=== PATIENT | male | born 1965 | race Caucasian/White ===

== ENCOUNTER 2020-09-23 22:34 | Emergency (ER) | payer BC ==
[2020-09-23] MEDS ORDERED: IBUPROFEN 600 MG TABLET PO STA (23:51)
--- NOTE | 2020-09-23 23:55 | ED Physician Documentation ---
History of Present Illness - Stated complaint Stated Complaint: RT EYE INJ - Chief complaint Chief Complaint: Heent - History obtained from History obtained from: Patient - Additonal information Additional information: 54-year-old man with pmh presbyopia with corrective lenses (did not bring today) , Up-to-date on tdap Presents with right eye injury after being poked directly in the middle of the eye with a tree branch this morning. Initially, the pain was mild, localized to the eye, sudden onset and constant. It has progressively worsened to the point that he is endorsing some blurring of vision and tearing. denies bleeding or other injuries. Review of Systems Eyes: reports: Decreased vision, Photophobia, Irritation PD PAST MEDICAL HISTORY - Past Medical History Past Medical History: Yes Cardiovascular: Hypertension - Past Surgical History Past Surgical History: No - Present Medications Home Medications: Ambulatory Orders Medication Instructions Recorded Confirmed Hydrochlorothiazide 09/23/20 Lisinopril [Zestril] 09/23/20 Mineral Oil/Petrolatum,White 3.5 gm LEFTEYE Q4H 7 Days #1 bottle 09/23/20 [Lubricant Pm Eye Ointment] Ofloxacin 0.3% Ophth Drops 1 drops OPTH Q4H 7 Days #1 bottle 09/23/20 [Ocuflox 0.3% Ophth Drops] - Allergies Allergies/Adverse Reactions: Allergies Allergy/AdvReac Type Severity Reaction Status Date / Time No Known Drug Allergies Allergy Verified 09/23/20 23:13 - Social History Does the pt smoke?: No Smoking Status: Never smoker Does the pt drink ETOH?: Yes ETOH Use: Wine Does the pt have substance abuse?: No - Immunizations Immunizations are current?: Yes PD ED PE NORMAL - Vitals Vital signs reviewed: Yes - General General: Alert and oriented X 3, No acute distress - HEENT HEENT: Atraumatic, PERRL, EOMI, Other (R eye with some mild tearing. visual acuity 20/50 L, 20/200 R eye. see procedure note for fluorescein stain) Results - Vitals Vitals: Vital Signs - 24 hr 09/23/20 09/24/20 23:06 00:07 Temperature 36.6 C Heart Rate 65 65 Respiratory 18 16 Rate Blood Pressure 156/83 H 150/78 H O2 Saturation 98 99 Oxygen O2 Source Room air Procedures - General procedure General procedure: Fluorescein stain performed with evidence of 2 corneal abrasions at 9 oclock position and -center of eye position measuring 2 mm in diameter each. Superficial appearing. Upon eyelid eversion a foreign body was found in the lower conjunctive a and removed. Patient tolerated procedure well. EBL minimal. PD MEDICAL DECISION MAKING - ED course ED course: 54-year-old man presented with corneal abrasions. He has an appoint with ophthalmology for glaucoma check this Saturday. I encouraged him to keep that appointment but to have his eye reexamined prior to any glaucoma screen. Strict return precautions given. Patient will use antibiotic eyedrops and lubricating ointment. Departure - Departure Disposition: , Self Care Clinical Impression: Corneal abrasion Condition: Good Instructions: ED Eye Injury Corneal Abrasion Prescriptions: Mineral Oil/Petrolatum,White [Lubricant Pm Eye Ointment] 3.5 gm LEFTEYE Q4H 7 Days #1 bottle Ofloxacin 0.3% Ophth Drops [Ocuflox 0.3% Ophth Drops] 1 drops OPTH Q4H 7 Days #1 bottle Comments: You were seen in the emergency department for corneal abrasion. Your left eye has a scratch to the middle and to the 9 o'clock position. Follow-up with your nuclear medicine chief technologist on Saturday. Return to the emergency department if you have worsening vision or worsening pain. Use your antibiotic eye drops as prescribed. Discharge Date/Time: 09/24/20 00:07
[2020-09-24 00:08] VITALS: BP 150/78
== END 2020-09-24 00:07 | disposition home or self-care (01) ==
LOC: ED 22:34
DX: T15.01XA Foreign body in cornea, right eye, initial encounter (principal); S00.251A Superficial foreign body of right eyelid and periocular area, initial encounter; W20.8XXA Other cause of strike by thrown, projected or falling object, initial encounter; Y93.H2 Activity, gardening and landscaping
CPT/HCPCS: 65205; 99281; 99282; A9270